=== PATIENT | female | born 1990 | race Two or more races ===

== ENCOUNTER 2021-12-25 15:01 | Outpatient (CLI) | payer OTHER | END 2021-12-25 15:35 | disposition home or self-care (01) | LOC: NST 15:01 | PROVIDERS: ATTEND Obstetrics & Gynecology | DX: Z34.83 Encounter for supervision of other normal pregnancy, third trimester (principal) ==

== ENCOUNTER 2022-02-09 08:15 | Inpatient (IN) | payer OTHER ==
[~2022-02-09] VITALS: Ht 154.9 cm; Wt 3.2 kg
== END 2022-02-14 12:00 | disposition home or self-care (01) | DRG 785 ==
LOC: LDR 08:15 → O/R 02-11 09:15 → SURG-SUITE 02-11 09:15 → LDR 02-11 11:45 → SURG-SUITE 02-11 14:10
PROVIDERS: ADMIT Obstetrics & Gynecology Maternal & Fetal Medicine; ATTEND Obstetrics & Gynecology Maternal & Fetal Medicine
PROC: 0UT70ZZ Resection of Bilateral Fallopian Tubes, Open Approach (ICD-10-PCS; 2022-02-11)
PROC: 4A1HXCZ Monitoring of Products of Conception, Cardiac Rate, External Approach (ICD-10-PCS; 2022-02-11)
PROC: 10D00Z1 Extraction of Products of Conception, Low, Open Approach (ICD-10-PCS; principal; 2022-02-11 11:45)
DX: O34.211 Maternal care for low transverse scar from previous cesarean delivery (principal); Z30.2 Encounter for sterilization; Z3A.39 39 weeks gestation of pregnancy; Z37.0 Single live birth; Z20.822 Contact with and (suspected) exposure to COVID-19